=== PATIENT | male | born 1960 | race American Indian/Alaskan Native ===

== ENCOUNTER 2021-01-08 15:20 | Inpatient (IN) | payer MEDICAID ==
[2021-01-09 09:59] LABS: Alanine Aminotransferase 24 units/L (7-56); Albumin 4.1 g/dL (3.9-5); BUN/Creatinine Ratio 16; Blood Urea Nitrogen 21 mg/dL (9-20); Calcium 9.3 mg/dL (8.4-10.2); Hemolysis Index 13
[2021-01-09 10:27] LABS: Basophils # (Auto) 0.1 K/mm3 (0.0-0.1); Basophils % (Auto) 0.6 % (0.0-1.8); Eosinophils # (Auto) 0.3 K/mm3 (0.0-0.4); Eosinophils % (Auto) 2.1 % (0.0-4.3); Hematocrit 40.9 % (35.5-45.6); Hemoglobin 13.2 gm/dl (11.8-15.2); Lymphocytes # (Auto) 3.2 K/mm3 (1.2-5.4); Lymphocytes % (Auto) 25.8 % (13.4-35.0); Mean Corpuscular HGB Conc 32 % (32-34); Mean Corpuscular Volume 86 fl (84-94); Monocytes # (Auto) 1.1 K/mm3 (0.0-0.8); Platelet Count 283 K/mm3 (140-440); Red Blood Count 4.77 M/mm3 (3.65-5.03); Red Cell Distribution Width 14.3 % (13.2-15.2)
--- NOTE | 2021-01-09 11:35 | History and Physical Report ---
GP History & Physical - History of Present Illness Date of admission: 01/08/21 Date of Examination: 01/09/21 Reason for Admission: Danger to self, Failure of Outpatient Treatment, Severe anxiety/depression History of Present Illness: The patient is a 60y/o male patient whom I evaluated today. He endorses SI without a plan. He says "I didn't have nothing to do it with." He also verbalizes voices telling him to hurt himself. He says he is from [facility]. The patient says he used to do cocaine but has been clean for a few years. PAST PSYCHIATRIC HISTORY: Diagnoses: schizophrenia Suicide attempts or Self-harm behavior: Denies Prior psychiatric hospitalizations: Yes Substance Abuse history: Cocaine Previous psychiatric medications tried: Yes Outpatient treatment: Yes PAST MEDICAL HISTORY: None reported or document Family Psychiatric History: None reported or documented SOCIAL HISTORY Marital Status: Single Living Arrangements: [facility] Employment Status: Disabled Access to guns/weapons: Denies Education: History of Abuse: Denies Legal History: Denies REVIEW OF SYSTEMS Constitutional: Negative for weight loss ENT: Negative for stridor Respiratory: Negative for cough or hemoptysis All other systems reviewed and are negative MENTAL STATUS EXAMINATION General Appearance and Behavior: Age appropriate, good hygiene, wearing appropriate clothes. Cooperation: cooperative Psychomotor Behavior: Psychomotor normal Mood: Depressed Affect and affective range: Incongruent with stated mood Thought Process: Goal directed Thought Content: None Speech: Normal volume, Regular rate and rhythm, Suicidal Ideation: Yes Homicidal Ideation: Denies Hallucinations: Auditory Delusions: None elicited Impulse Control: Unimpaired Insight and Judgment: Poor Memory: limited Attention: Distractible Orientation: alert and oriented Assessment and Plan (1) Schizophrenia Current Visit: Yes Status: Acute Treatment Plan Patient admitted for inpatient psychiatric evaluation, medication adjustment and close monitoring The patient's behavior, mood, sleep and appetite will be closely monitored. Patient enrolled in individual and group therapeutic sessions and encouraged to attend. Patient provided with a safe and structured environment. Patient's physical health needs will be addressed by the Hospitalist. Hospitalist Consulted Labs including CBC, CMP, Lipid profile and Hemoglobin A1C levels ordered for baseline reference Social Assessment will be completed and the Matrix Worker will work with patient and family to ensure a suitable and safe disposition Medication adjustment will be made as clinically indicated Restarted home meds Usual Wellness Restorationist/Preservation: - Start Trazodone 50 mg po QHS & 50 mg po QHS PRN between 10 PM & 2 AM for insomnia - Start Melatonin 5 mg po QHS to promote circadian rhythm The patient agreed on the treatment plan, understood the risk, benefit, alternative treatment, potential consequence of no treatment, and gave informed consent. Estimated days: 7 Post hospital care: primary care provider, psychiatric provider Case staffed with Dr. Grewal Legal Status: Voluntary Reaction to Hospitalization: Accepting Medications and Allergies Allergies Allergy/AdvReac Type Severity Reaction Status Date / Time acetaminophen Allergy Severe Swelling Verified 01/08/21 23:30 aspirin Allergy Severe Swelling Verified 01/08/21 23:32 Home Medications Medication Instructions Recorded Confirmed Last Taken Type Apixaban [Eliquis] 5 mg PO BID 01/09/21 01/09/21 Unknown History Insulin Detemir [Levemir Flextouch] 22 unit SQ HS 01/09/21 01/09/21 Unknown History Lispro Insulin [HumaLOG] See Protocol SQ ACHS 01/09/21 01/09/21 Unknown History Magnesium Oxide [Mag-Ox] 400 mg PO TID 01/09/21 01/09/21 Unknown History Metoprolol [Lopressor TAB] 50 mg PO BID 01/09/21 01/09/21 Unknown History Pravastatin [Pravachol] 80 mg PO QHS 01/09/21 01/09/21 Unknown History Quetiapine Fumarate [SEROquel] 400 mg PO HS 01/09/21 01/09/21 Unknown History Tiotropium Br/Olodaterol HCl 2 puff IH DAILY 01/09/21 01/09/21 Unknown History [Stiolto Respimat Inhal [place]] levETIRAcetam [Keppra TAB] 1,000 mg PO BID 01/09/21 01/09/21 Unknown History lisinopriL [Lisinopril] 10 mg PO DAILY 01/09/21 01/09/21 Unknown History oxyCODONE [roxiCODONE] 5 mg PO TID 01/09/21 01/09/21 Unknown History Results - Results Labs/Vitals: Laboratory Last Values WBC 12.4 K/mm3 (4.5-11.0) H 01/09/21 09:14 RBC 4.77 M/mm3 (3.65-5.03) 01/09/21 09:14 Hgb 13.2 gm/dl (11.8-15.2) 01/09/21 09:14 Hct 40.9 % (35.5-45.6) 01/09/21 09:14 MCV 86 fl (84-94) 01/09/21 09:14 MCH 28 pg (28-32) 01/09/21 09:14 MCHC 32 % (32-34) 01/09/21 09:14 RDW 14.3 % (13.2-15.2) 01/09/21 09:14 Plt Count 283 K/mm3 (140-440) 01/09/21 09:14 Lymph % (Auto) 25.8 % (13.4-35.0) 01/09/21 09:14 [place] % (Auto) 9.0 % (0.0-7.3) H 01/09/21 09:14 Eos % (Auto) 2.1 % (0.0-4.3) 01/09/21 09:14 Baso % (Auto) 0.6 % (0.0-1.8) 01/09/21 09:14 Lymph # (Auto) 3.2 K/mm3 (1.2-5.4) 01/09/21 09:14 [place] # (Auto) 1.1 K/mm3 (0.0-0.8) H 01/09/21 09:14 Eos # (Auto) 0.3 K/mm3 (0.0-0.4) 01/09/21 09:14 Baso # (Auto) 0.1 K/mm3 (0.0-0.1) 01/09/21 09:14 Seg Neutrophils % 62.5 % (40.0-70.0) 01/09/21 09:14 Seg Neutrophils # 7.8 K/mm3 (1.8-7.7) H 01/09/21 09:14 Sodium 137 mmol/L (137-145) 01/09/21 09:14 Potassium 4.8 mmol/L (3.6-5.0) 01/09/21 09:14 Chloride 101.7 mmol/L (98-107) 01/09/21 09:14 Carbon Dioxide 21 mmol/L (22-30) L 01/09/21 09:14 Anion Gap 19 mmol/L 01/09/21 09:14 BUN 21 mg/dL (9-20) H 01/09/21 09:14 Creatinine 1.3 mg/dL (0.8-1.3) 01/09/21 09:14 Estimated GFR > 60 ml/min 01/09/21 09:14 BUN/Creatinine Ratio 16 % 01/09/21 09:14 Glucose 207 mg/dL (75-100) H 01/09/21 09:14 POC Glucose 215 mg/dL (70-105) H 01/09/21 10:55 Calcium 9.3 mg/dL (8.4-10.2) 01/09/21 09:14 Total Bilirubin 0.50 mg/dL (0.1-1.2) 01/09/21 09:14 AST 16 units/L (5-40) 01/09/21 09:14 ALT 24 units/L (7-56) 01/09/21 09:14 Alkaline Phosphatase 149 units/L (35-129) H 01/09/21 09:14 Total Protein 6.8 g/dL (6.3-8.2) 01/09/21 09:14 Albumin 4.1 g/dL (3.9-5) 01/09/21 09:14 Albumin/Globulin Ratio 1.5 % 01/09/21 09:14 TSH 1.840 mlU/mL (0.270-4.200) 01/09/21 09:14 Last Vital Signs Temp 99.0 F 01/09/21 07:43 Pulse 81 01/09/21 07:43 Resp 18 01/09/21 07:43 BP 125/71 01/09/21 07:43 Pulse Ox 80 L 01/09/21 07:43 Physical Examination - Constitutional Vitals: Vital Signs Temp Pulse Resp BP Pulse Ox 99.0 F 81 18 125/71 80 L 01/09/21 07:43 01/09/21 07:43 01/09/21 07:43 01/09/21 07:43 01/09/21 07:43 Temperature -Last 24 Hours Temperature 99.0 F Mental Status Exam - Vital signs Last Vital Signs Temp 99.0 F 01/09/21 07:43 Pulse 81 01/09/21 07:43 Resp 18 01/09/21 07:43 BP 125/71 01/09/21 07:43 Pulse Ox 80 L 01/09/21 07:43 Physician Certification - Certification Statement Physician Certification Statement: This is an acknowledgement statement that OSVALDO DE LA TORRE is a 60 year old M who requires inpatient psychiatric admission for treatment which could reasonably be expected to improve the patient's condition for Estimated period of time patient will need to remain in the hospital: [ ] Plan for post-hospital care: [ ]
[2021-01-09] MEDS ORDERED: NON-FORMULARY EACH (Apixaban 5 MG Tablet) PO SCH (11:45)
[2021-01-09] MEDS ORDERED: NON-FORMULARY EACH (Levetiracetam [Keppra Tab] 1,000 MG Tablet) PO SCH (11:45)
[2021-01-09] MEDS ORDERED: NON-FORMULARY EACH (Tiotropium Br/Olodaterol Hcl [Stiolto Respimat Inhal Spray] 4 GM Mist. NS SCH (11:45)
--- NOTE | 2021-01-09 12:11 | Consultation ---
History of Present Illness - Reason for Consult Consult date: 01/09/21 Hypertension Requesting physician: TAYO YUN - History of Present Illness Patient with schizophrenia admitted to Psych Floor. The hospitalist service has been consulted for management of multiple co-morbidities including hypertension, diabetes, COPD, seizure disorder. Currently he denies chest pain, denies shortness of breath. He has chronic respiratory failure from COPD and is on oxygen at 2 l/min. Past History Past Medical History: COPD, diabetes, hypertension Past Surgical History: Other (knee surgery) Social history: other (Quit smoking 2 months). denies: alcohol abuse Family history: no significant family history Medications and Allergies Allergies Allergy/AdvReac Type Severity Reaction Status Date / Time acetaminophen Allergy Severe Swelling Verified 01/08/21 23:30 aspirin Allergy Severe Swelling Verified 01/08/21 23:32 Home Medications Medication Instructions Recorded Confirmed Last Taken Type Apixaban [Eliquis] 5 mg PO BID 01/09/21 01/09/21 Unknown History Insulin Detemir [Levemir Flextouch] 22 unit SQ HS 01/09/21 01/09/21 Unknown History Lispro Insulin [HumaLOG] See Protocol SQ ACHS 01/09/21 01/09/21 Unknown History Magnesium Oxide [Mag-Ox] 400 mg PO TID 01/09/21 01/09/21 Unknown History Metoprolol [Lopressor TAB] 50 mg PO BID 01/09/21 01/09/21 Unknown History Pravastatin [Pravachol] 80 mg PO QHS 01/09/21 01/09/21 Unknown History Tiotropium Br/Olodaterol HCl 2 puff IH DAILY 01/09/21 01/09/21 Unknown History [Stiolto Respimat Inhal [place]] levETIRAcetam [Keppra TAB] 1,000 mg PO BID 01/09/21 01/09/21 Unknown History lisinopriL [Lisinopril] 10 mg PO DAILY 01/09/21 01/09/21 Unknown History oxyCODONE [roxiCODONE] 5 mg PO TID 01/09/21 01/09/21 Unknown History QUEtiapine [SEROquel] 25 mg PO DAILY #30 tablet 01/13/21 Unknown Rx Quetiapine Fumarate [SEROquel] 400 mg PO HS #30 01/13/21 Unknown Rx Sertraline [Zoloft] 25 mg PO QDAY #30 tablet 01/13/21 Unknown Rx Active Meds: Active Medications Apixaban (Apixaban 5 Mg Tab) 5 mg PO Q12HR JAN Insulin Glargine (Insulin Glargine 100 Units/Ml) 22 units SUB-Q QHS JAN Insulin Human Lispro (Insulin Lispro 100 Unit/Ml) 0 unit SUB-Q ACHS JAN Levetiracetam (Levetiracetam 500 Mg Tab) 1,000 mg PO BID JAN Lisinopril (Lisinopril 10 Mg Tab) 10 mg PO DAILY JAN Magnesium Oxide (Magnesium Oxide 400 Mg Tab) 400 mg PO TID JAN Metoprolol Tartrate (Metoprolol Tartrate 50 Mg Tab) 50 mg PO BID JAN Miscellaneous Medication (Tiotropium Br/Olodaterol Hcl [Stiolto Respimat Inhal [place]]) 2 puff IH DAILY JAN Oxycodone HCl (Oxycodone 5 Mg Tab) 5 mg PO TID JAN Pravastatin Sodium (Pravastatin 80 Mg Tab) 80 mg PO QHS JAN Quetiapine Fumarate (Quetiapine 200 Mg Tab) 400 mg PO HS JAN Review of Systems All systems: negative (No fever, no cough , no abd pain. All other systems reviewed and are negative.) Exam - Physical Exam Narrative exam: Gen: Not in acute distress, obese, sitting up in chair HEENT:Normocephalic,atraumatic Neck:supple, No JVD Lungs: Clear to auscultation, no wheeze Heart:S1 and S2 reg, no murmurs, rubs or gallop Abd:soft, non tender, non distended, normal bowel sounds Ext; No edema, no clubbing, no cyanosis Neuro:Awake,alert, moves all extremities, no focal neurological , - Constitutional Vitals: Temp Pulse Resp BP Pulse Ox 99.0 F 81 18 125/71 80 L 01/09/21 07:43 01/09/21 07:43 01/09/21 07:43 01/09/21 07:43 01/09/21 07:43 Results - Labs CBC & Chem 7: 01/09/21 09:14 01/09/21 09:14 Labs: Abnormal lab results 01/09/21 01/09/21 01/09/21 Range/Units 06:10 09:14 09:14 WBC 12.4 H (4.5-11.0) K/mm3 [place] % (Auto) 9.0 H (0.0-7.3) % [place] # (Auto) 1.1 H (0.0-0.8) K/mm3 Seg Neutrophils # 7.8 H (1.8-7.7) K/mm3 Carbon Dioxide 21 L (22-30) mmol/L BUN 21 H (9-20) mg/dL Glucose 207 H (75-100) mg/dL POC Glucose 280 H (70-105) mg/dL Alkaline Phosphatase 149 H (35-129) units/L 01/09/21 Range/Units 10:55 WBC (4.5-11.0) K/mm3 [place] % (Auto) (0.0-7.3) % [place] # (Auto) (0.0-0.8) K/mm3 Seg Neutrophils # (1.8-7.7) K/mm3 Carbon Dioxide (22-30) mmol/L BUN (9-20) mg/dL Glucose (75-100) mg/dL POC Glucose 215 H (70-105) mg/dL Alkaline Phosphatase (35-129) units/L Assessment and Plan Schizophrenia Admitted to Psych floor Hypertension Cont meds Diabetes mellitus type 2 accucheck qac hs Seizure disorder Implement seizure precaution COPD Chronic resp failure Cont Oxygen at 2 l/min Thanks Dr. Yun for consulting us. Will follow.
[2021-01-09 12:37] LABS: Hepatitis C Virus Antibody Non-Reactive (NonReactive)
[2021-01-09 12:51] LABS: Hepatitis B Surface Antigen Nonreactive (Negative)
[2021-01-09] MEDS: LISINOPRIL 10 MG TAB PO SCH (13:42)
[2021-01-09] MEDS: oxyCODONE 5 MG TAB PO SCH ×2 (13:42→20:20)
[2021-01-09] MEDS: MAGNESIUM OXIDE 400 MG TAB PO SCH ×2 (13:42→20:20)
[2021-01-09] MEDS: METOPROLOL TARTRATE 50 MG TAB PO SCH ×2 (13:42→21:16)
[2021-01-09] MEDS: INSULIN LISPRO 100 UNIT/ML SUB-Q SCH ×2 (16:52→22:53)
[2021-01-09] MEDS: APIXABAN 5 MG TAB PO SCH (21:14)
[2021-01-09] MEDS: levETIRAcetam 500 MG TAB PO SCH (21:15)
[2021-01-09] MEDS: QUEtiapine 200 MG TAB PO SCH (21:17)
[2021-01-09] MEDS: PRAVASTATIN 80 MG TAB PO SCH (21:17)
[2021-01-09] MEDS ORDERED: NON-FORMULARY EACH (Insulin Detemir [Levemir Flextouch] 100 UNIT/ML Insuln.Pen) SQ SCH (22:00)
[2021-01-09] MEDS ORDERED: NON-FORMULARY EACH (Quetiapine Fumarate [Seroquel] 400 MG Tablet) PO SCH (22:00)
[2021-01-09] MEDS: INSULIN GLARGINE 100 UNITS/ML SUB-Q SCH (22:52)
[2021-01-10] MEDS: levETIRAcetam 500 MG TAB PO SCH ×2 (09:02→21:31)
[2021-01-10] MEDS: MAGNESIUM OXIDE 400 MG TAB PO SCH ×3 (09:02→21:31)
[2021-01-10] MEDS: APIXABAN 5 MG TAB PO SCH ×2 (09:02→21:31)
[2021-01-10] MEDS: oxyCODONE 5 MG TAB PO SCH ×3 (09:03→21:31)
[2021-01-10] MEDS: INSULIN LISPRO 100 UNIT/ML SUB-Q SCH ×4 (09:09→22:14)
--- NOTE | 2021-01-10 10:43 | Progress Note ---
Subjective Date of service: 01/10/21 Principal diagnosis: Schizophrenia Subjective Comment: The patient was seen today. He endorses suicidal thoughts with no plan. He says "I'm getting better though." He verbalizes hearing voices that he "can't make out." REVIEW OF SYSTEMS Constitutional: Negative for weight loss ENT: Negative for stridor Respiratory: Negative for cough or hemoptysis All other systems reviewed and are negative MENTAL STATUS EXAMINATION General Appearance and Behavior: Age appropriate, good hygiene, wearing appropriate clothes. Cooperation: cooperative Psychomotor Behavior: Psychomotor normal Mood: Depressed Affect and affective range: Incongruent with stated mood Thought Process: Goal directed Thought Content: None Speech: Normal volume, Regular rate and rhythm, Suicidal Ideation: Yes Homicidal Ideation: Denies Hallucinations: Auditory Delusions: None elicited Impulse Control: Unimpaired Insight and Judgment: Poor Memory: limited Attention: Distractible Orientation: alert and oriented Assessment and Plan (1) Schizophrenia Current Visit: Yes Status: Acute Treatment Plan Patient admitted for inpatient psychiatric evaluation, medication adjustment and close monitoring The patient's behavior, mood, sleep and appetite will be closely monitored. Patient enrolled in individual and group therapeutic sessions and encouraged to attend. Patient provided with a safe and structured environment. Patient's physical health needs will be addressed by the Hospitalist. Hospitalist Consulted Labs including CBC, CMP, Lipid profile and Hemoglobin A1C levels ordered for baseline reference Social Assessment will be completed and the Nail Expert will work with patient and family to ensure a suitable and safe disposition Medication adjustment will be made as clinically indicated Start Seroquel 25mg po daily in addition to nightly dose Start Zoloft 25mg po daily Usual Wellness Jain/Preservation: - Start Trazodone 50 mg po QHS & 50 mg po QHS PRN between 10 PM & 2 AM for insomnia - Start Melatonin 5 mg po QHS to promote circadian rhythm The patient agreed on the treatment plan, understood the risk, benefit, alternative treatment, potential consequence of no treatment, and gave informed consent. Estimated days: 5 Post hospital care: primary care provider, psychiatric provider Case staffed with Dr. Grewal Medications and Allergies Allergies Allergy/AdvReac Type Severity Reaction Status Date / Time acetaminophen Allergy Severe Swelling Verified 01/08/21 23:30 aspirin Allergy Severe Swelling Verified 01/08/21 23:32 Home Medications Medication Instructions Recorded Confirmed Last Taken Type Apixaban [Eliquis] 5 mg PO BID 01/09/21 01/09/21 Unknown History Insulin Detemir [Levemir Flextouch] 22 unit SQ HS 01/09/21 01/09/21 Unknown H istory Lispro Insulin [HumaLOG] See Protocol SQ [facility] 01/09/21 01/09/21 Unknown History Magnesium Oxide [Mag-Ox] 400 mg PO TID 01/09/21 01/09/21 Unknown History Metoprolol [Lopressor TAB] 50 mg PO BID 01/09/21 01/09/21 Unknown History Pravastatin [Pravachol] 80 mg PO QHS 01/09/21 01/09/21 Unknown History Quetiapine Fumarate [SEROquel] 400 mg PO HS 01/09/21 01/09/21 Unknown History Tiotropium Br/Olodaterol HCl 2 puff IH DAILY 01/09/21 01/09/21 Unknown History [Stiolto Respimat Inhal [place]] levETIRAcetam [Keppra TAB] 1,000 mg PO BID 01/09/21 01/09/21 Unknown History lisinopriL [Lisinopril] 10 mg PO DAILY 01/09/21 01/09/21 Unknown History oxyCODONE [roxiCODONE] 5 mg PO TID 01/09/21 01/09/21 Unknown History Active Meds: Active Medications Apixaban (Apixaban 5 Mg Tab) 5 mg PO Q12HR [facility] Last Admin: 01/10/21 09:02 Dose: 5 mg Documented by: Insulin Glargine (Insulin [facility] 100 Units/Ml) [facility] Admin: 01/09/21 22:52 Dose: 22 units Documented by: Insulin Human Lispro (Insulin Lispro 100 Unit/Ml) 0 unit SUB-Q [facility]; Protocol Last Admin: 01/10/21 09:09 Dose: Not Given Documented by: Levetiracetam (Levetiracetam 500 Mg Tab) 1,000 mg PO BID [facility] Last Admin: 01/10/21 09:02 Dose: 1,000 mg Documented by: Lisinopril (Lisinopril 10 Mg Tab) 10 mg PO DAILY [facility] Last Admin: 01/09/21 13:42 Dose: 10 mg Documented by: Magnesium Oxide (Magnesium Oxide 400 Mg Tab) 400 mg PO TID [facility] Last Admin: 10/23/21 09:02 Dose: 400 mg Documented by: Metoprolol Tartrate (Metoprolol Tartrate 50 Mg Tab) 50 mg PO BID [facility] Last Admin: 01/09/21 21:16 Dose: 50 mg Documented by: Miscellaneous Medication (Tiotropium Br/Olodaterol Hcl [Stiolto Respimat Inhal [place]]) 2 puff NS DAILY [facility] Oxycodone HCl (Oxycodone 5 Mg Tab) 5 mg PO TID [facility] Last Admin: 01/10/21 09:03 Dose: 5 mg Documented by: Pravastatin Sodium (Pravastatin 80 Mg Tab) 80 mg PO QHS [facility] Last Admin: 01/09/21 21:17 Dose: 80 mg Documented by: Quetiapine Fumarate (Quetiapine 200 Mg Tab) 400 mg PO HS [facility] Last Admin: 01/09/21 21:17 Dose: 400 mg Documented by: Results - Results Labs/Vitals: Laboratory Last Values WBC 12.4 K/mm3 (4.5-11.0) H 01/09/21 09:14 RBC 4.77 M/mm3 (3.65-5.03) 01/09/21 09:14 Hgb 13.2 gm/dl (11.8-15.2) 01/09/21 09:14 Hct 40.9 % (35.5-45.6) 01/09/21 09:14 MCV 86 fl (84-94) 01/09/21 09:14 MCH 28 pg (28-32) 01/09/21 09:14 MCHC 32 % (32-34) 01/09/21 09:14 RDW 14.3 % (13.2-15.2) 01/09/21 09:14 Plt Count 283 K/mm3 (140-440) 01/09/21 09:14 Lymph % (Auto) 25.8 % (13.4-35.0) 01/09/21 09:14 [place] % (Auto) 9.0 % (0.0-7.3) H 01/09/21 09:14 Eos % (Auto) 2.1 % (0.0-4.3) 01/09/21 09:14 Baso % (Auto) 0.6 % (0.0-1.8) 01/09/21 09:14 Lymph # (Auto) 3.2 K/mm3 (1.2-5.4) 01/09/21 09:14 [place] # (Auto) 1.1 K/mm3 (0.0-0.8) H 01/09/21 09:14 Eos # (Auto) 0.3 K/mm3 (0.0-0.4) 01/09/21 09:14 Baso # (Auto) 0.1 K/mm3 (0.0-0.1) 01/09/21 09:14 Seg Neutrophils % 62.5 % (40.0-70.0) 01/09/21 09:14 Seg Neutrophils # 7.8 K/mm3 (1.8-7.7) H 01/09/21 09:14 Sodium 137 mmol/L (137-145) 01/09/21 09:14 Potassium 4.8 mmol/L (3.6-5.0) 01/09/21 09:14 Chloride 101.7 mmol/L (98-107) 01/09/21 09:14 Carbon Dioxide 21 mmol/L (22-30) L 01/09/21 09:14 Anion Gap 19 mmol/L 01/09/21 09:14 BUN 21 mg/dL (9-20) H 01/09/21 09:14 Creatinine 1.3 mg/dL (0.8-1.3) 01/09/21 09:14 Estimated GFR > 60 ml/min 01/09/21 09:14 BUN/Creatinine Ratio 16 % 01/09/21 09:14 Glucose 207 mg/dL (75-100) H 01/09/21 09:14 POC Glucose 186 mg/dL (70-105) H 01/10/21 08:28 Calcium 9.3 mg/dL (8.4-10.2) 01/09/21 09:14 Total Bilirubin 0.50 mg/dL (0.1-1.2) 01/09/21 09:14 AST 16 units/L (5-40) 01/09/21 09:14 ALT 24 units/L (7-56) 01/09/21 09:14 Alkaline Phosphatase 149 units/L (35-129) H 01/09/21 09:14 Total Protein 6.8 g/dL (6.3-8.2) 01/09/21 09:14 Albumin 4.1 g/dL (3.9-5) 01/09/21 09:14 Albumin/Globulin Ratio 1.5 % 01/09/21 09:14 TSH 1.840 mlU/mL (0.270-4.200) 01/09/21 09:14 Hepatitis A IgM Ab Non-reactive (NonReactive) 01/09/21 09:14 Hep Bs Antigen Nonreactive (Negative) 01/09/21 09:14 Hep B Core IgM Ab Non-reactive (NonReactive) 01/09/21 09:14 Hepatitis C Antibody Non-reactive (NonReactive) 01/09/21 09:14 Last Vital Signs Temp 98.7 F 01/09/21 20:22 Pulse 83 01/09/21 21:16 Resp 18 01/09/21 20:22 BP 114/72 01/09/21 21:16 Pulse Ox 98 01/09/21 20:22
[2021-01-10] MEDS: QUEtiapine 25 MG TAB PO SCH (15:46)
[2021-01-10] MEDS: SERTRALINE 25 MG TAB PO SCH (15:46)
[2021-01-10] MEDS: LISINOPRIL 10 MG TAB PO SCH (15:57)
[2021-01-10] MEDS: METOPROLOL TARTRATE 50 MG TAB PO SCH ×2 (15:58→21:32)
[2021-01-10] MEDS: QUEtiapine 200 MG TAB PO SCH (21:31)
[2021-01-10] MEDS: PRAVASTATIN 80 MG TAB PO SCH (21:32)
[2021-01-10] MEDS: INSULIN GLARGINE 100 UNITS/ML SUB-Q SCH (22:13)
[2021-01-11] MEDS: INSULIN LISPRO 100 UNIT/ML SUB-Q SCH ×4 (07:30→21:27)
--- NOTE | 2021-01-11 10:00 | Progress Note ---
Subjective Date of service: 01/11/21 Principal diagnosis: Schizophrenia Subjective Comment: The patient was seen today. He says he's feeling better. The patient says he's not longer suicidal. He denies any hallucinations. REVIEW OF SYSTEMS Constitutional: Negative for weight loss ENT: Negative for stridor Respiratory: Negative for cough or hemoptysis All other systems reviewed and are negative MENTAL STATUS EXAMINATION General Appearance and Behavior: Age appropriate, good hygiene, wearing appropriate clothes. Cooperation: cooperative Psychomotor Behavior: Psychomotor normal Mood: Depressed Affect and affective range: Incongruent with stated mood Thought Process: Goal directed Thought Content: None Speech: Normal volume, Regular rate and rhythm, Suicidal Ideation: Yes Homicidal Ideation: Denies Hallucinations: Auditory Delusions: None elicited Impulse Control: Unimpaired Insight and Judgment: Poor Memory: limited Attention: Distractible Orientation: alert and oriented Assessment and Plan (1) Schizophrenia Current Visit: Yes Status: Acute Treatment Plan Patient admitted for inpatient psychiatric evaluation, medication adjustment and close monitoring The patient's behavior, mood, sleep and appetite will be closely monitored. Patient enrolled in individual and group therapeutic sessions and encouraged to attend. Patient provided with a safe and structured environment. Patient's physical health needs will be addressed by the Hospitalist. Hospitalist Consulted Labs including CBC, CMP, Lipid profile and Hemoglobin A1C levels ordered for baseline reference Social Assessment will be completed and the Assembly Machine Tender will work with patient and family to ensure a suitable and safe disposition Medication adjustment will be made as clinically indicated Start Seroquel 25mg po daily in addition to nightly dose yesterday Start Zoloft 25mg po daily yesterday No changes made today Usual Wellness Jehovah'S Witness/Preservation: - Start Trazodone 50 mg po QHS & 50 mg po QHS PRN between 10 PM & 2 AM for insomnia - Start Melatonin 5 mg po QHS to promote circadian rhythm The patient agreed on the treatment plan, understood the risk, benefit, alternative treatment, potential consequence of no treatment, and gave informed consent. Estimated days: 5 Post hospital care: primary care provider, psychiatric provider Case staffed with Dr. Grewal Medications and Allergies Allergies Allergy/AdvReac Type Severity Reaction Status Date / Time acetaminophen Allergy Severe Swelling Verified 01/08/21 23:30 aspirin Allergy Severe Swelling Verified 01/08/21 23:32 Home Medications Medication Instructions Recorded Confirmed Last Taken Type Apixaban [Eliquis] 5 mg PO BID 01/09/21 01/09/21 Unknown History Insulin Detemir [Levemir Flextouch] 22 unit SQ HS 01/09/21 01/09/21 Unknown History Lispro Insulin [HumaLOG] See Protocol SQ [facility] 01/09/21 01/09/21 Unknown History Magnesium Oxide [Mag-Ox] 400 mg PO TID 01/09/21 01/09/21 Unknown History Metoprolol [Lopressor TAB] 50 mg PO BID 01/09/21 01/09/21 Unknown History Pravastatin [Pravachol] 80 mg PO QHS 01/09/21 01/09/21 Unknown History Quetiapine Fumarate [SEROquel] 400 mg PO HS 01/09/21 01/09/21 Unknown History Tiotropium Br/Olodaterol HCl 2 puff IH DAILY 01/09/21 01/09/21 Unknown History [Stiolto Respimat Inhal [place]] levETIRAcetam [Keppra TAB] 1,000 mg PO BID 01/09/21 01/09/21 Unknown History lisinopriL [Lisinopril] 10 mg PO DAILY 01/09/21 01/09/21 Unknown History oxyCODONE [roxiCODONE] 5 mg PO TID 01/09/21 01/09/21 Unknown History Active Meds: Active Medications Apixaban (Apixaban 5 Mg Tab) 5 mg PO Q12HR [facility] Last Admin: 01/10/21 21:31 Dose: 5 mg Documented by: Insulin Glargine (Insulin Glargine 100 Units/Ml) [facility] Admin: 01/10/21 22:13 Dose: 22 units Documented by: Insulin Human Lispro (Insulin Lispro 100 Unit/Ml) 0 unit SUB-Q [facility]; Protocol Last Admin: 01/10/21 22:14 Dose: Not Given Documented by: Levetiracetam (Levetiracetam 500 Mg Tab) 1,000 mg PO BID [facility] Last Admin: 01/10/21 21:31 Dose: 1,000 mg Documented by: Lisinopril (Lisinopril 10 Mg Tab) 10 mg PO DAILY [facility] Last Admin: 01/10/21 15:57 Dose: 10 mg Documented by: Magnesium Oxide (Magnesium Oxide 400 Mg Tab) 400 mg PO TID [facility] Last Admin: 01/10/21 21:31 Dose: 400 mg Documented by: Metoprolol Tartrate (Metoprolol Tartrate 50 Mg Tab) 50 mg PO BID [facility] Last Admin: 01/10/21 21:32 Dose: 50 mg Documented by: Miscellaneous Medication (Tiotropium Br/Olodaterol Hcl [Stiolto Respimat Inhal [place]]) 2 puff NS DAILY [facility] Oxycodone HCl (Oxycodone 5 Mg Tab) 5 mg PO TID [facility] Last Admin: 01/10/21 21:31 Dose: 5 mg Documented by: Pravastatin Sodium (Pravastatin 80 Mg Tab) 80 mg PO QHS [facility] Last Admin: 01/10/21 21:32 Dose: 80 mg Documented by: Quetiapine Fumarate (Quetiapine 200 Mg Tab) 400 mg PO HS [facility] Last Admin: 01/10/21 21:31 Dose: 400 mg Documented by: Quetiapine Fumarate (Quetiapine 25 Mg Tab) 25 mg PO DAILY [facility] Last Admin: 01/10/21 15:46 Dose: 25 mg Documented by: Sertraline HCl (Sertraline 25 Mg Tab) 25 mg PO QDAY [facility] Last Admin: 01/10/21 15:46 Dose: 25 mg Documented by: Results - Results Labs/Vitals: Laboratory Last Values WBC 12.4 K/mm3 (4.5-11.0) H 01/09/21 09:14 RBC 4.77 M/mm3 (3.65-5.03) 01/09/21 09:14 Hgb 13.2 gm/dl (11.8-15.2) 01/09/21 09:14 Hct 40.9 % (35.5-45.6) 01/09/21 09:14 MCV 86 fl (84-94) 01/09/21 09:14 MCH 28 pg (28-32) 01/09/21 09:14 MCHC 32 % (32-34) 01/09/21 09:14 RDW 14.3 % (13.2-15.2) 01/09/21 09:14 Plt Count 283 K/mm3 (140-440) 01/09/21 09:14 Lymph % (Auto) 25.8 % (13.4-35.0) 01/09/21 09:14 [place] % (Auto) 9.0 % (0.0-7.3) H 01/09/21 09:14 Eos % (Auto) 2.1 % (0.0-4.3) 01/09/21 09:14 Baso % (Auto) 0.6 % (0.0-1.8) 01/09/21 09:14 Lymph # (Auto) 3.2 K/mm3 (1.2-5.4) 01/09/21 09:14 [place] # (Auto) 1.1 K/mm3 (0.0-0.8) H 01/09/21 09:14 Eos # (Auto) 0.3 K/mm3 (0.0-0.4) 01/09/21 09:14 Baso # (Auto) 0.1 K/mm3 (0.0-0.1) 01/09/21 09:14 Seg Neutrophils % 62.5 % (40.0-70.0) 01/09/21 09:14 Seg Neutrophils # 7.8 K/mm3 (1.8-7.7) H 01/09/21 09:14 Sodium 137 mmol/L (137-145) 01/09/21 09:14 Potassium 4.8 mmol/L (3.6-5.0) 01/09/21 09:14 Chloride 101.7 mmol/L (98-107) 01/09/21 09:14 Carbon Dioxide 21 mmol/L (22-30) L 01/09/21 09:14 Anion Gap 19 mmol/L 01/09/21 09:14 BUN 21 mg/dL (9-20) H 01/09/21 09:14 Creatinine 1.3 mg/dL (0.8-1.3) 01/09/21 09:14 Estimated GFR > 60 ml/min 01/09/21 09:14 BUN/Creatinine Ratio 16 % 01/09/21 09:14 Glucose 207 mg/dL (75-100) H 01/09/21 09:14 POC Glucose 136 mg/dL (70-105) H 01/11/21 06:07 Calcium 9.3 mg/dL (8.4-10.2) 01/09/21 09:14 Total Bilirubin 0.50 mg/dL (0.1-1.2) 01/09/21 09:14 AST 16 units/L (5-40) 01/09/21 09:14 ALT 24 units/L (7-56) 01/09/21 09:14 Alkaline Phosphatase 149 units/L (35-129) H 01/09/21 09:14 Total Protein 6.8 g/dL (6.3-8.2) 01/09/21 09:14 Albumin 4.1 g/dL (3.9-5) 01/09/21 09:14 Albumin/Globulin Ratio 1.5 % 01/09/21 09:14 TSH 1.840 mlU/mL (0.270-4.200) 01/09/21 09:14 Hepatitis A IgM Ab Non-reactive (NonReactive) 01/09/21 09:14 Hep Bs Antigen Nonreactive (Negative) 01/09/21 09:14 Hep B Core IgM Ab Non-reactive (NonReactive) 01/09/21 09:14 Hepatitis C Antibody Non-reactive (NonReactive) 01/09/21 09:14 Last Vital Signs Temp 98.3 F 01/10/21 20:14 Pulse 71 01/10/21 21:32 Resp 18 01/10/21 21:31 BP 126/80 01/10/21 21:32 Pulse Ox 97 01/10/21 20:14
[2021-01-11] MEDS: levETIRAcetam 500 MG TAB PO SCH ×2 (10:54→21:28)
[2021-01-11] MEDS: APIXABAN 5 MG TAB PO SCH ×2 (10:54→21:28)
[2021-01-11] MEDS: oxyCODONE 5 MG TAB PO SCH ×3 (10:54→20:15)
[2021-01-11] MEDS: MAGNESIUM OXIDE 400 MG TAB PO SCH ×3 (10:54→20:10)
[2021-01-11] MEDS: QUEtiapine 25 MG TAB PO SCH (10:54)
[2021-01-11] MEDS: SERTRALINE 25 MG TAB PO SCH (10:54)
[2021-01-11] MEDS: METOPROLOL TARTRATE 50 MG TAB PO SCH ×2 (11:00→21:27)
[2021-01-11] MEDS: LISINOPRIL 10 MG TAB PO SCH (11:00)
--- NOTE | 2021-01-11 18:24 | Progress Note ---
Assessment and Plan - Patient Problems (1) COPD (chronic obstructive pulmonary disease) Current Visit: Yes Status: Acute Plan to address problem: Supplemental oxygen, pulse oximetry, continue current therapy. Outpatient pulmonary follow-up. (2) Nicotine dependence Current Visit: Yes Status: Acute Qualifiers: Nicotine product type: cigarettes Substance use status: in withdrawal Qualified Code(s): F17.213 - Nicotine dependence, cigarettes, with withdrawal Plan to address problem: Smoking cessation counseling, behavior change counseling, +15 minutes. (3) Hypertension Current Visit: Yes Status: Acute Qualifiers: Hypertension type: primary hypertension Qualified Code(s): I10 - Essential (primary) hypertension Plan to address problem: Monitor blood pressure every shift, continue medical management. (4) Obesity Current Visit: Yes Status: Acute Plan to address problem: Balanced diet, increase physical activity at discharge, outpatient pulmonary follow-up for sleep study (5) Seizure disorder Current Visit: Yes Status: Acute Plan to address problem: Seizure precautions, neurochecks, continue current therapy. (6) Diabetes Current Visit: Yes Status: Acute Plan to address problem: Consistent carbohydrate diet, hypoglycemia protocol, insulin protocol, History Interval history: 60 YO Male with DM, COPD, Nicotine Dependence, HTN, Seizure Disorder admitted to [facility] for psychiatric stabilization. Patient seen and evaluated in the recreation room. No reported nursing events. Patient denies pain. Hospitalist Physical - Constitutional Vitals: Temp Pulse Resp BP Pulse Ox 98.0 F 80 18 135/83 98 01/11/21 11:06 01/11/21 11:06 01/11/21 11:06 01/11/21 11:06 01/11/21 11:06 General appearance: Present: no acute distress - EENT Eyes: Present: PERRL ENT: hearing intact - Neck Neck: Present: supple - Respiratory Respiratory effort: normal Respiratory: bilateral: diminished - Cardiovascular Rhythm: regular Heart Sounds: Present: S1 & S2 - Extremities Extremities: no ischemia Peripheral Pulses: within normal limits - Abdominal General gastrointestinal: soft, non-tender, non-distended - Integumentary Integumentary: Present: clear, dry - Psychiatric Psychiatric: cooperative - Neurologic Neurologic: CNII-XII intact Results - Labs CBC & Chem 7: 01/09/21 09:14 01/09/21 09:14 Labs: Laboratory Last Values WBC 12.4 K/mm3 (4.5-11.0) H 01/09/21 09:14 RBC 4.77 M/mm3 (3.65-5.03) 01/09/21 09:14 Hgb 13.2 gm/dl (11.8-15.2) 01/09/21 09:14 Hct 40.9 % (35.5-45.6) 01/09/21 09:14 MCV 86 fl (84-94) 01/09/21 09:14 MCH 28 pg (28-32) 01/09/21 09:14 MCHC 32 % (32-34) 01/09/21 09:14 RDW 14.3 % (13.2-15.2) 01/09/21 09:14 Plt Count 283 K/mm3 (140-440) 01/09/21 09:14 Lymph % (Auto) 25.8 % (13.4-35.0) 01/09/21 09:14 [place] % (Auto) 9.0 % (0.0-7.3) H 01/09/21 09:14 Eos % (Auto) 2.1 % (0.0-4.3) 01/09/21 09:14 Baso % (Auto) 0.6 % (0.0-1.8) 01/09/21 09:14 Lymph # (Auto) 3.2 K/mm3 (1.2-5.4) 01/09/21 09:14 [place] # (Auto) 1.1 K/mm3 (0.0-0.8) H 01/09/21 09:14 Eos # (Auto) 0.3 K/mm3 (0.0-0.4) 01/09/21 09:14 Baso # (Auto) 0.1 K/mm3 (0.0-0.1) 01/09/21 09:14 Seg Neutrophils % 62.5 % (40.0-70.0) 01/09/21 09:14 Seg Neutrophils # 7.8 K/mm3 (1.8-7.7) H 01/09/21 09:14 Sodium 137 mmol/L (137-145) 01/09/21 09:14 Potassium 4.8 mmol/L (3.6-5.0) 01/09/21 09:14 Chloride 101.7 mmol/L (98-107) 01/09/21 09:14 Carbon Dioxide 21 mmol/L (22-30) L 01/09/21 09:14 Anion Gap 19 mmol/L 01/09/21 09:14 BUN 21 mg/dL (9-20) H 01/09/21 09:14 Creatinine 1.3 mg/dL (0.8-1.3) 01/09/21 09:14 Estimated GFR > 60 ml/min 01/09/21 09:14 BUN/Creatinine Ratio 16 % 01/09/21 09:14 Glucose 207 mg/dL (75-100) H 01/09/21 09:14 POC Glucose 183 mg/dL (70-105) H 01/11/21 16:33 Calcium 9.3 mg/dL (8.4-10.2) 01/09/21 09:14 Magnesium 2.10 mg/dL (1.7-2.3) 01/11/21 09:26 Total Bilirubin 0.50 mg/dL (0.1-1.2) 01/09/21 09:14 AST 16 units/L (5-40) 01/09/21 09:14 ALT 24 units/L (7-56) 01/09/21 09:14 Alkaline Phosphatase 149 units/L (35-129) H 01/09/21 09:14 Total Protein 6.8 g/dL (6.3-8.2) 01/09/21 09:14 Albumin 4.1 g/dL (3.9-5) 01/09/21 09:14 Albumin/Globulin Ratio 1.5 % 01/09/21 09:14 TSH 1.840 mlU/mL (0.270-4.200) 01/09/21 09:14 Hepatitis A IgM Ab Non-reactive (NonReactive) 01/09/21 09:14 Hep Bs Antigen Nonreactive (Negative) 01/09/21 09:14 Hep B Core IgM Ab Non-reactive (NonReactive) 01/09/21 09:14 Hepatitis C Antibody Non-reactive (NonReactive) 01/09/21 09:14 Nunes/IV: Voiding Method Toilet Active Medications - Current Medications Current Medications: Generic Name Dose Route Start Last Admin Trade Name Freq PRN Reason Stop Dose Admin Apixaban 5 mg 01/09/21 22:00 01/11/21 10:54 Apixaban 5 Mg Tab PO 5 mg Q12HR JAN Administration Insulin Glargine 22 units 01/09/21 22:00 01/10/21 22:13 Insulin Glargine 100 Units/Ml SUB-Q 22 units QHS JAN Administration Insulin Human Lispro 0 unit 01/09/21 16:30 01/11/21 16:55 Insulin Lispro 100 Unit/Ml SUB-Q Not Given ACHS [facility] Protocol Levetiracetam 1,000 mg 01/09/21 22:00 01/11/21 10:54 Levetiracetam 500 Mg Tab PO 1,000 mg BID JAN Administration Lisinopril 10 mg 01/09/21 14:00 01/11/21 11:00 Lisinopril 10 Mg Tab PO 10 mg DAILY JAN Administration Magnesium Oxide 400 mg 01/09/21 14:00 01/11/21 18:22 Magnesium Oxide 400 Mg Tab PO Not Given TID [facility] Metoprolol Tartrate 50 mg 01/09/21 12:00 01/11/21 11:00 Metoprolol Tartrate 50 Mg Tab PO 50 mg BID JAN Administration Miscellaneous Medication 2 puff 01/09/21 11:45 Tiotropium Br/Olodaterol Hcl [Stiolto Respimat Inhal [place]] NS DAILY [facility] Oxycodone HCl 5 mg 01/09/21 14:00 01/11/21 15:50 Oxycodone 5 Mg Tab PO 5 mg TID JAN Administration Pravastatin Sodium 80 mg 01/09/21 22:00 01/10/21 21:32 Pravastatin 80 Mg Tab PO 80 mg QHS [facility] Administration Quetiapine Fumarate 400 mg 01/09/21 22:00 01/10/21 21:31 Quetiapine 200 Mg Tab PO 400 mg HS JAN Administration Quetiapine Fumarate 25 mg 01/10/21 11:00 01/11/21 10:54 Quetiapine 25 Mg Tab PO 25 mg DAILY JAN Administration Sertraline HCl 25 mg 01/10/21 11:00 01/11/21 10:54 Sertraline 25 Mg Tab PO 25 mg QDAY JAN Administration
--- NOTE | 2021-01-11 18:29 | Progress Note ---
Assessment and Plan - Patient Problems (1) COPD (chronic obstructive pulmonary disease) Current Visit: Yes Status: Acute Plan to address problem: Supplemental oxygen, pulse oximetry, continue current therapy. Outpatient pulmonary follow-up. (2) Nicotine dependence Current Visit: Yes Status: Acute Qualifiers: Nicotine product type: cigarettes Substance use status: in withdrawal Qualified Code(s): F17.213 - Nicotine dependence, cigarettes, with withdrawal Plan to address problem: Smoking cessation counseling, behavior change counseling, +15 minutes. (3) Hypertension Current Visit: Yes Status: Acute Qualifiers: Hypertension type: primary hypertension Qualified Code(s): I10 - Essential (primary) hypertension Plan to address problem: Monitor blood pressure every shift, continue medical management. (4) Obesity Current Visit: Yes Status: Acute Plan to address problem: Balanced diet, increase physical activity at discharge, outpatient pulmonary follow-up for sleep study (5) Seizure disorder Current Visit: Yes Status: Acute Plan to address problem: Seizure precautions, neurochecks, continue current therapy. (6) Diabetes Current Visit: Yes Status: Acute Plan to address problem: Consistent carbohydrate diet, hypoglycemia protocol, insulin protocol, History Interval history: 60 YO Male with DM, COPD, Nicotine Dependence, HTN, Seizure Disorder admitted to [facility] unit for psychiatric stabilization. Patient seen and evaluated in the recreation room. No reported nursing events. Patient denies pain. Hospitalist Physical - Constitutional Vitals: Temp Pulse Resp BP Pulse Ox 98.0 F 80 18 135/83 98 01/11/21 11:06 01/11/21 11:06 01/11/21 11:06 01/11/21 11:06 01/11/21 11:06 General appearance: Present: no acute distress - EENT Eyes: Present: PERRL, EOM intact ENT: hearing intact - Neck Neck: Present: supple - Respiratory Respiratory effort: normal Respiratory: bilateral: diminished - Cardiovascular Rhythm: regular Heart Sounds: Present: S1 & S2 - Extremities Extremities: no ischemia Peripheral Pulses: within normal limits - Abdominal General gastrointestinal: soft, non-tender, non-distended - Integumentary Integumentary: Present: clear, dry - Psychiatric Psychiatric: cooperative - Neurologic Neurologic: CNII-XII intact Results - Labs CBC & Chem 7: 01/09/21 09:14 01/09/21 09:14 Labs: Laboratory Last Values WBC 12.4 K/mm3 (4.5-11.0) H 01/09/21 09:14 RBC 4.77 M/mm3 (3.65-5.03) 01/09/21 09:14 Hgb 13.2 gm/dl (11.8-15.2) 01/09/21 09:14 Hct 40.9 % (35.5-45.6) 01/09/21 09:14 MCV 86 fl (84-94) 01/09/21 09:14 MCH 28 pg (28-32) 01/09/21 09:14 MCHC 32 % (32-34) 01/09/21 09:14 RDW 14.3 % (13.2-15.2) 01/09/21 09:14 Plt Count 283 K/mm3 (140-440) 01/09/21 09:14 Lymph % (Auto) 25.8 % (13.4-35.0) 01/09/21 09:14 [place] % (Auto) 9.0 % (0.0-7.3) H 01/09/21 09:14 Eos % (Auto) 2.1 % (0.0-4.3) 01/09/21 09:14 Baso % (Auto) 0.6 % (0.0-1.8) 01/09/21 09:14 Lymph # (Auto) 3.2 K/mm3 (1.2-5.4) 01/09/21 09:14 [place] # (Auto) 1.1 K/mm3 (0.0-0.8) H 01/09/21 09:14 Eos # (Auto) 0.3 K/mm3 (0.0-0.4) 01/09/21 09:14 Baso # (Auto) 0.1 K/mm3 (0.0-0.1) 01/09/21 09:14 Seg Neutrophils % 62.5 % (40.0-70.0) 01/09/21 09:14 Seg Neutrophils # 7.8 K/mm3 (1.8-7.7) H 01/09/21 09:14 Sodium 137 mmol/L (137-145) 01/09/21 09:14 Potassium 4.8 mmol/L (3.6-5.0) 01/09/21 09:14 Chloride 101.7 mmol/L (98-107) 01/09/21 09:14 Carbon Dioxide 21 mmol/L (22-30) L 01/09/21 09:14 Anion Gap 19 mmol/L 01/09/21 09:14 BUN 21 mg/dL (9-20) H 01/09/21 09:14 Creatinine 1.3 mg/dL (0.8-1.3) 01/09/21 09:14 Estimated GFR > 60 ml/min 01/09/21 09:14 BUN/Creatinine Ratio 16 % 01/09/21 09:14 Glucose 207 mg/dL (75-100) H 01/09/21 09:14 POC Glucose 183 mg/dL (70-105) H 01/11/21 16:33 Calcium 9.3 mg/dL (8.4-10.2) 01/09/21 09:14 Magnesium 2.10 mg/dL (1.7-2.3) 01/11/21 09:26 Total Bilirubin 0.50 mg/dL (0.1-1.2) 01/09/21 09:14 AST 16 units/L (5-40) 01/09/21 09:14 ALT 24 units/L (7-56) 01/09/21 09:14 Alkaline Phosphatase 149 units/L (35-129) H 01/09/21 09:14 Total Protein 6.8 g/dL (6.3-8.2) 01/09/21 09:14 Albumin 4.1 g/dL (3.9-5) 01/09/21 09:14 Albumin/Globulin Ratio 1.5 % 01/09/21 09:14 TSH 1.840 mlU/mL (0.270-4.200) 01/09/21 09:14 Hepatitis A IgM Ab Non-reactive (NonReactive) 01/09/21 09:14 Hep Bs Antigen Nonreactive (Negative) 01/09/21 09:14 Hep B Core IgM Ab Non-reactive (NonReactive) 01/09/21 09:14 Hepatitis C Antibody Non-reactive (NonReactive) 01/09/21 09:14 Nunes/IV: Voiding Method Toilet Active Medications - Current Medications Current Medications: Generic Name Dose Route Start Last Admin Trade Name Freq PRN Reason Stop Dose Admin Apixaban 5 mg 01/09/21 22:00 01/11/21 10:54 Apixaban 5 Mg Tab PO 5 mg Q12HR JAN Administration Insulin Glargine 22 units 01/09/21 22:00 01/10/21 22:13 Insulin Glargine 100 Units/Ml SUB-Q 22 units QHS JAN Administration Insulin Human Lispro 0 unit 01/09/21 16:30 01/11/21 16:55 Insulin Lispro 100 Unit/Ml SUB-Q Not Given ACHS [facility] Protocol Levetiracetam 1,000 mg 01/09/21 22:00 01/11/21 10:54 Levetiracetam 500 Mg Tab PO 1,000 mg BID JAN Administration Lisinopril 10 mg 01/09/21 14:00 01/11/21 11:00 Lisinopril 10 Mg Tab PO 10 mg DAILY [facility] Administration Magnesium Oxide 400 mg 01/09/21 14:00 01/11/21 18:22 Magnesium Oxide 400 Mg Tab PO Not Given TID [facility] Metoprolol Tartrate 50 mg 01/09/21 12:00 01/11/21 11:00 Metoprolol Tartrate 50 Mg Tab PO 50 mg BID [facility] Administration Miscellaneous Medication 2 puff 01/09/21 11:45 Tiotropium Br/Olodaterol Hcl [Stiolto Respimat Inhal [place]] NS DAILY [facility] Oxycodone HCl 5 mg 01/09/21 14:00 01/11/21 15:50 Oxycodone 5 Mg Tab PO 5 mg TID [facility] Administration Pravastatin Sodium 80 mg 01/09/21 22:00 01/10/21 21:32 Pravastatin 80 Mg Tab PO 80 mg QHS [facility] Administration Quetiapine Fumarate 400 mg 01/09/21 22:00 01/10/21 21:31 Quetiapine 200 Mg Tab PO 400 mg HS [facility] Administration Quetiapine Fumarate 25 mg 01/10/21 11:00 01/11/21 10:54 Quetiapine 25 Mg Tab PO 25 mg DAILY [facility] Administration Sertraline HCl 25 mg 01/10/21 11:00 01/11/21 10:54 Sertraline 25 Mg Tab PO 25 mg QDAY JAN Administration
[2021-01-11] MEDS: QUEtiapine 200 MG TAB PO SCH (21:24)
[2021-01-11] MEDS: INSULIN GLARGINE 100 UNITS/ML SUB-Q SCH (21:26)
[2021-01-11] MEDS: PRAVASTATIN 80 MG TAB PO SCH (21:28)
[2021-01-12] MEDS: INSULIN LISPRO 100 UNIT/ML SUB-Q SCH ×4 (08:23→22:22)
[2021-01-12] MEDS: oxyCODONE 5 MG TAB PO SCH ×3 (08:54→21:01)
[2021-01-12] MEDS: levETIRAcetam 500 MG TAB PO SCH ×2 (09:01→21:03)
[2021-01-12] MEDS: APIXABAN 5 MG TAB PO SCH ×2 (09:01→21:02)
[2021-01-12] MEDS: SERTRALINE 25 MG TAB PO SCH (09:01)
[2021-01-12] MEDS: QUEtiapine 25 MG TAB PO SCH (09:01)
[2021-01-12] MEDS: METOPROLOL TARTRATE 50 MG TAB PO SCH ×2 (09:02→21:04)
[2021-01-12] MEDS: LISINOPRIL 10 MG TAB PO SCH (09:05)
[2021-01-12] MEDS: MAGNESIUM OXIDE 400 MG TAB PO SCH ×3 (09:41→21:01)
--- NOTE | 2021-01-12 10:25 | Progress Note ---
Subjective Date of service: 01/12/21 Principal diagnosis: Schizophrenia Subjective Comment: The patient was seen today. He says he's feeling better. He says he's been sleeping well and his appetite is good. He says he believes the meds and rest have been working for him. The patient says he's not longer suicidal. He denies any hallucinations. Will monitor the patient overnight and discharge him tomorrow to a safe place. REVIEW OF SYSTEMS Constitutional: Negative for weight loss ENT: Negative for stridor Respiratory: Negative for cough or hemoptysis All other systems reviewed and are negative MENTAL STATUS EXAMINATION General Appearance and Behavior: Age appropriate, good hygiene, wearing appropriate clothes. Cooperation: cooperative Psychomotor Behavior: Psychomotor normal Mood: Depressed Affect and affective range: Incongruent with stated mood Thought Process: Goal directed Thought Content: None Speech: Normal volume, Regular rate and rhythm, Suicidal Ideation: Yes Homicidal Ideation: Denies Hallucinations: Auditory Delusions: None elicited Impulse Control: Unimpaired Insight and Judgment: Poor Memory: limited Attention: Distractible Orientation: alert and oriented Assessment and Plan (1) Schizophrenia Current Visit: Yes Status: Acute Treatment Plan Patient admitted for inpatient psychiatric evaluation, medication adjustment and close monitoring The patient's behavior, mood, sleep and appetite will be closely monitored. Patient enrolled in individual and group therapeutic sessions and encouraged to attend. Patient provided with a safe and structured environment. Patient's physical health needs will be addressed by the Hospitalist. Hospitalist Consulted Labs including CBC, CMP, Lipid profile and Hemoglobin A1C levels ordered for baseline reference Social Assessment will be completed and the Relationship Manager will work with patient and family to ensure a suitable and safe disposition Medication adjustment will be made as clinically indicated No changes made today Usual Wellness Mosque/Preservation: - Start Trazodone 50 mg po QHS & 50 mg po QHS PRN between 10 PM & 2 AM for insomnia - Start Melatonin 5 mg po QHS to promote circadian rhythm The patient agreed on the treatment plan, understood the risk, benefit, alternative treatment, potential consequence of no treatment, and gave informed consent. Estimated days: 5 Post hospital care: primary care provider, psychiatric provider Case staffed with Dr. Grewal Medications and Allergies Allergies Allergy/AdvReac Type Severity Reaction Status Date / Time acetaminophen Allergy Severe Swelling Verified 01/08/21 23:30 aspirin Allergy Severe Swelling Verified 01/08/21 23:32 Home Medications Medication Instructions Recorded Confirmed Last Taken Type Apixaban [Eliquis] 5 mg PO BID 01/09/21 01/09/21 Unknown History Insulin Detemir [Levemir Flextouch] 22 unit SQ 01/09/21 01/09/21 Unknown History Lispro Insulin [HumaLOG] See Protocol SQ [facility] 01/09/21 01/09/21 Unknown History Magnesium Oxide [Mag-Ox] 400 mg PO TID 01/09/21 01/09/21 Unknown History Metoprolol [Lopressor TAB] 50 mg PO BID 01/09/21 01/09/21 Unknown History Pravastatin [Pravachol] 80 mg PO QHS 01/09/21 01/09/21 Unknown History Quetiapine Fumarate [SEROquel] 400 mg PO HS 01/09/21 01/09/21 Unknown History Tiotropium Br/Olodaterol HCl 2 puff IH DAILY 01/09/21 01/09/21 Unknown History [Stiolto Respimat Inhal [place]] levETIRAcetam [Keppra TAB] 1,000 mg PO BID 01/09/21 01/09/21 Unknown History lisinopriL [Lisinopril] 10 mg PO DAILY 01/09/21 01/09/21 Unknown History oxyCODONE [roxiCODONE] 5 mg PO TID 01/09/21 01/09/21 Unknown History Active Meds: Active Medications Apixaban (Apixaban 5 Mg Tab) 5 mg PO Q12HR [facility] Last Admin: 01/12/21 09:01 Dose: 5 mg Documented by: Insulin Glargine (Insulin Glargine 100 Units/Ml) [facility] Admin: 01/11/21 21:26 Dose: 22 units Documented by: Insulin Human Lispro (Insulin Lispro 100 Unit/Ml) 0 unit SUB-Q [facility]; Protocol Last Admin: 01/12/21 08:23 Dose: Not Given Documented by: Levetiracetam (Levetiracetam 500 Mg Tab) 1,000 mg PO BID [facility] Last Admin: 01/12/21 09:01 Dose: 1,000 mg Documented by: Lisinopril (Lisinopril 10 Mg Tab) 10 mg PO DAILY [facility] Last Admin: 01/12/21 09:05 Dose: 10 mg Documented by: Magnesium Oxide (Magnesium Oxide 400 Mg Tab) 400 mg PO TID [facility] Last Admin: 01/12/21 09:41 Dose: 400 mg Documented by: Metoprolol Tartrate (Metoprolol Tartrate 50 Mg Tab) 50 mg PO BID [facility] Last Admin: 01/12/21 09:02 Dose: 50 mg Documented by: Miscellaneous Medication (Tiotropium Br/Olodaterol Hcl [Stiolto Respimat Inhal [place]]) 2 puff NS DAILY [facility] Oxycodone HCl (Oxycodone 5 Mg Tab) 5 mg PO TID [facility] Last Admin: 01/12/21 08:54 Dose: 5 mg Documented by: Pravastatin Sodium (Pravastatin 80 Mg Tab) 80 mg PO QHS [facility] Last Admin: 01/11/21 21:28 Dose: 80 mg Documented by: Quetiapine Fumarate (Quetiapine 200 Mg Tab) 400 mg PO HS [facility] Last Admin: 01/11/21 21:24 Dose: 400 mg Documented by: Quetiapine Fumarate (Quetiapine 25 Mg Tab) 25 mg PO DAILY [facility] Last Admin: 01/12/21 09:01 Dose: 25 mg Documented by: Sertraline HCl (Sertraline 25 Mg Tab) 25 mg PO QDAY [facility] Last Admin: 01/12/21 09:01 Dose: 25 mg Documented by: Results - Results Labs/Vitals: Laboratory Last Values WBC 12.4 K/mm3 (4.5-11.0) H 01/09/21 09:14 RBC 4.77 M/mm3 (3.65-5.03) 01/09/21 09:14 Hgb 13.2 gm/dl (11.8-15.2) 01/09/21 09:14 Hct 40.9 % (35.5-45.6) 01/09/21 09:14 MCV 86 fl (84-94) 01/09/21 09:14 MCH 28 pg (28-32) 01/09/21 09:14 MCHC 32 % (32-34) 01/09/21 09:14 RDW 14.3 % (13.2-15.2) 01/09/21 09:14 Plt Count 283 K/mm3 (140-440) 01/09/21 09:14 Lymph % (Auto) 25.8 % (13.4-35.0) 01/09/21 09:14 [place] % (Auto) 9.0 % (0.0-7.3) H 01/09/21 09:14 Eos % (Auto) 2.1 % (0.0-4.3) 01/09/21 09:14 Baso % (Auto) 0.6 % (0.0-1.8) 01/09/21 09:14 Lymph # (Auto) 3.2 K/mm3 (1.2-5.4) 01/09/21 09:14 [place] # (Auto) 1.1 K/mm3 (0.0-0.8) H 01/09/21 09:14 Eos # (Auto) 0.3 K/mm3 (0.0-0.4) 01/09/21 09:14 Baso # (Auto) 0.1 K/mm3 (0.0-0.1) 01/09/21 09:14 Seg Neutrophils % 62.5 % (40.0-70.0) 01/09/21 09:14 Seg Neutrophils # 7.8 K/mm3 (1.8-7.7) H 01/09/21 09:14 Sodium 137 mmol/L (137-145) 01/09/21 09:14 Potassium 4.8 mmol/L (3.6-5.0) 01/09/21 09:14 Chloride 101.7 mmol/L (98-107) 01/09/21 09:14 Carbon Dioxide 21 mmol/L (22-30) L 01/09/21 09:14 Anion Gap 19 mmol/L 01/09/21 09:14 BUN 21 mg/dL (9-20) H 01/09/21 09:14 Creatinine 1.3 mg/dL (0.8-1.3) 01/09/21 09:14 Estimated GFR > 60 ml/min 01/09/21 09:14 BUN/Creatinine Ratio 16 % 01/09/21 09:14 Glucose 207 mg/dL (75-100) H 01/09/21 09:14 POC Glucose 143 mg/dL (70-105) H 01/12/21 06:02 Calcium 9.3 mg/dL (8.4-10.2) 01/09/21 09:14 Magnesium 2.10 mg/dL (1.7-2.3) 01/11/21 09:26 Total Bilirubin 0.50 mg/dL (0.1-1.2) 01/09/21 09:14 AST 16 units/L (5-40) 01/09/21 09:14 ALT 24 units/L (7-56) 01/09/21 09:14 Alkaline Phosphatase 149 units/L (35-129) H 01/09/21 09:14 Total Protein 6.8 g/dL (6.3-8.2) 01/09/21 09:14 Albumin 4.1 g/dL (3.9-5) 01/09/21 09:14 Albumin/Globulin Ratio 1.5 % 01/09/21 09:14 TSH 1.840 mlU/mL (0.270-4.200) 01/09/21 09:14 Hepatitis A IgM Ab Non-reactive (NonReactive) 01/09/21 09:14 Hep Bs Antigen Nonreactive (Negative) 01/09/21 09:14 Hep B Core IgM Ab Non-reactive (NonReactive) 01/09/21 09:14 Hepatitis C Antibody Non-reactive (NonReactive) 01/09/21 09:14 Last Vital Signs Temp 98.9 F 01/11/21 22:00 Pulse 70 01/12/21 09:02 Resp 18 01/12/21 08:54 BP 113/70 01/12/21 09:02 Pulse Ox 99 01/12/21 08:29
[2021-01-12] MEDS: PRAVASTATIN 80 MG TAB PO SCH (21:04)
[2021-01-12] MEDS: QUEtiapine 200 MG TAB PO SCH (21:04)
[2021-01-12] MEDS: INSULIN GLARGINE 100 UNITS/ML SUB-Q SCH (22:21)
[2021-01-13] MEDS: INSULIN LISPRO 100 UNIT/ML SUB-Q SCH ×4 (07:44→22:36)
[2021-01-13] MEDS: MAGNESIUM OXIDE 400 MG TAB PO SCH ×3 (07:54→22:35)
[2021-01-13] MEDS: oxyCODONE 5 MG TAB PO SCH ×3 (07:54→22:24)
[2021-01-13] MEDS: APIXABAN 5 MG TAB PO SCH ×2 (09:22→22:35)
[2021-01-13] MEDS: levETIRAcetam 500 MG TAB PO SCH ×2 (09:22→22:25)
[2021-01-13] MEDS: SERTRALINE 25 MG TAB PO SCH (09:22)
[2021-01-13] MEDS: METOPROLOL TARTRATE 50 MG TAB PO SCH ×2 (09:22→22:25)
[2021-01-13] MEDS: QUEtiapine 25 MG TAB PO SCH (09:22)
[2021-01-13] MEDS: LISINOPRIL 10 MG TAB PO SCH (09:23)
--- NOTE | 2021-01-13 09:40 | Discharge Summary ---
Providers - Providers Date of Admission: 01/09/21 04:13 Date of discharge: 01/13/21 Attending physician: TAYO YUN MD 01/08/21 15:39 Consult to Physician [CONS] Routine Comment: Consulting Provider: DIONTE SIFUENTES Physician Instructions: Reason For Exam: Manage existing medical conditions Primary care physician: PEDIATRIC LPN Hospitalization Reason for admission: depression Admitting Diagnosis: F20.9 - SCHIZOPHRENIA, UNSPECIFIED Condition: Stable Hospital course: The patient was provided inpatient psychiatric treatment with safe and supportive care, medication adjustment, adverse effect monitoring, medical evaluations, medical treatments, assessment and psycho-education. The patient's mood, cognition, behavior, moral support are improved and stabilized. St the time of discharge, the patient had no endangering behavior and no debilitating adverse effects. The patient agreed on potential consequences of no treatment and gave informed consent. Disposition: HOME / SELF CARE / HOMELESS Time spent for discharge: 35 Allergies/Adverse Reactions: Allergies acetaminophen Allergy (Severe, Verified 01/08/21 23:30) Swelling aspirin Allergy (Severe, Verified 01/08/21 23:32) Swelling Vital Signs: Last Vital Signs Temp 98.6 F 01/13/21 07:31 Pulse 68 01/13/21 09:23 Resp 18 01/13/21 07:54 BP 117/70 01/13/21 09:23 Pulse Ox 96 01/13/21 07:31 Last Lab: Laboratory Last Values WBC 12.4 K/mm3 (4.5-11.0) H 01/09/21 09:14 RBC 4.77 M/mm3 (3.65-5.03) 01/09/21 09:14 Hgb 13.2 gm/dl (11.8-15.2) 01/09/21 09:14 Hct 40.9 % (35.5-45.6) 01/09/21 09:14 MCV 86 fl (84-94) 01/09/21 09:14 MCH 28 pg (28-32) 01/09/21 09:14 MCHC 32 % (32-34) 01/09/21 09:14 RDW 14.3 % (13.2-15.2) 01/09/21 09:14 Plt Count 283 K/mm3 (140-440) 01/09/21 09:14 Lymph % (Auto) 25.8 % (13.4-35.0) 01/09/21 09:14 [place] % (Auto) 9.0 % (0.0-7.3) H 01/09/21 09:14 Eos % (Auto) 2.1 % (0.0-4.3) 01/09/21 09:14 Baso % (Auto) 0.6 % (0.0-1.8) 01/09/21 09:14 Lymph # (Auto) 3.2 K/mm3 (1.2-5.4) 01/09/21 09:14 [place] # (Auto) 1.1 K/mm3 (0.0-0.8) H 01/09/21 09:14 Eos # (Auto) 0.3 K/mm3 (0.0-0.4) 01/09/21 09:14 Baso # (Auto) 0.1 K/mm3 (0.0-0.1) 01/09/21 09:14 Seg Neutrophils % 62.5 % (40.0-70.0) 01/09/21 09:14 Seg Neutrophils # 7.8 K/mm3 (1.8-7.7) H 01/09/21 09:14 Sodium 137 mmol/L (137-145) 01/09/21 09:14 Potassium 4.8 mmol/L (3.6-5.0) 01/09/21 09:14 Chloride 101.7 mmol/L (98-107) 01/09/21 09:14 Carbon Dioxide 21 mmol/L (22-30) L 01/09/21 09:14 Anion Gap 19 mmol/L 01/09/21 09:14 BUN 21 mg/dL (9-20) H 01/09/21 09:14 Creatinine 1.3 mg/dL (0.8-1.3) 01/09/21 09:14 Estimated GFR > 60 ml/min 01/09/21 09:14 BUN/Creatinine Ratio 16 % 01/09/21 09:14 Glucose 207 mg/dL (75-100) H 01/09/21 09:14 POC Glucose 132 mg/dL (70-105) H 01/13/21 07:20 Calcium 9.3 mg/dL (8.4-10.2) 01/09/21 09:14 Magnesium 2.10 mg/dL (1.7-2.3) 01/11/21 09:26 Total Bilirubin 0.50 mg/dL (0.1-1.2) 01/09/21 09:14 AST 16 units/L (5-40) 01/09/21 09:14 ALT 24 units/L (7-56) 01/09/21 09:14 Alkaline Phosphatase 149 units/L (35-129) H 01/09/21 09:14 Total Protein 6.8 g/dL (6.3-8.2) 01/09/21 09:14 Albumin 4.1 g/dL (3.9-5) 01/09/21 09:14 Albumin/Globulin Ratio 1.5 % 01/09/21 09:14 TSH 1.840 mlU/mL (0.270-4.200) 01/09/21 09:14 Hepatitis A IgM Ab Non-reactive (NonReactive) 01/09/21 09:14 Hep Bs Antigen Nonreactive (Negative) 01/09/21 09:14 Hep B Core IgM Ab Non-reactive (NonReactive) 01/09/21 09:14 Hepatitis C Antibody Non-reactive (NonReactive) 01/09/21 09:14 Core Measure Documentation - Palliative Care Palliative Care/ Comfort Measures: Not Applicable - Core Measures Any of the following diagnoses?: none Exam - Constitutional Vitals: Temp Pulse Resp BP Pulse Ox 98.6 F 68 18 117/70 96 01/13/21 07:31 01/13/21 09:23 01/13/21 07:54 01/13/21 09:23 01/13/21 07:31 General appearance: Present: no acute distress - EENT Eyes: Present: PERRL, EOM intact ENT: hearing intact, clear oral mucosa - Neck Neck: Present: supple, normal ROM - Respiratory Respiratory effort: normal Plan Activity: advance as tolerated Weight Bearing Status: Weight Bear as Tolerated Care Plan Goals: Maintain good and stable mental health Plan of Treatment: The patient should be compliant with medications, not to use drugs, and not to drink alcohol. The patient understands that if suicidal ideas, homicidal ideas or any endangering feeling arise, the patient should seek assistance including, but not limited to crisis hotline, and emergency room. Assessment: Schizophrenia Follow up with: PRIMARY CARE, [Primary Care Provider] - 7 Days Prescriptions: QUEtiapine [SEROquel] 25 mg PO DAILY #30 tablet Quetiapine Fumarate [SEROquel] 400 mg PO HS #30 Sertraline [Zoloft] 25 mg PO QDAY #30 tablet
--- NOTE | 2021-01-13 17:54 | Progress Note ---
Assessment and Plan - Patient Problems (1) COPD (chronic obstructive pulmonary disease) Current Visit: Yes Status: Acute Plan to address problem: Supplemental oxygen, pulse oximetry, continue current therapy. Outpatient pulmonary follow-up. (2) Nicotine dependence Current Visit: Yes Status: Acute Qualifiers: Nicotine product type: cigarettes Substance use status: in withdrawal Qualified Code(s): F17.213 - Nicotine dependence, cigarettes, with withdrawal Plan to address problem: Smoking cessation counseling, behavior change counseling, +15 minutes. (3) Hypertension Current Visit: Yes Status: Acute Qualifiers: Hypertension type: primary hypertension Qualified Code(s): I10 - Essential (primary) hypertension Plan to address problem: Monitor blood pressure every shift, continue medical management. (4) Obesity Current Visit: Yes Status: Acute Plan to address problem: Balanced diet, increase physical activity at discharge, outpatient pulmonary follow-up for sleep study (5) Seizure disorder Current Visit: Yes Status: Acute Plan to address problem: Seizure precautions, neurochecks, continue current therapy. (6) Diabetes Current Visit: Yes Status: Acute Plan to address problem: Consistent carbohydrate diet, hypoglycemia protocol, insulin protocol, History Interval history: 60 YO Male with DM, COPD, Nicotine Dependence, HTN, Seizure Disorder admitted to [facility] for psychiatric stabilization. Patient seen and evaluated in the recreation room. No reported nursing events. Patient denies pain. Hospitalist Physical - Constitutional Vitals: Temp Pulse Resp BP Pulse Ox 98.6 F 68 18 117/70 96 01/13/21 07:31 01/13/21 09:23 01/13/21 07:54 01/13/21 09:23 01/13/21 07:31 General appearance: Present: no acute distress - EENT Eyes: Present: PERRL ENT: hearing intact - Neck Neck: Present: supple - Respiratory Respiratory effort: normal Respiratory: bilateral: diminished - Cardiovascular Rhythm: regular Heart Sounds: Present: S1 & S2 - Extremities Extremities: no ischemia Peripheral Pulses: within normal limits - Abdominal General gastrointestinal: soft, non-tender, non-distended - Integumentary Integumentary: Present: clear, dry - Psychiatric Psychiatric: cooperative - Neurologic Neurologic: CNII-XII intact Results - Labs CBC & Chem 7: 01/09/21 09:14 01/09/21 09:14 Labs: Laboratory Last Values WBC 12.4 K/mm3 (4.5-11.0) H 01/09/21 09:14 RBC 4.77 M/mm3 (3.65-5.03) 01/09/21 09:14 Hgb 13.2 gm/dl (11.8-15.2) 01/09/21 09:14 Hct 40.9 % (35.5-45.6) 01/09/21 09:14 MCV 86 fl (84-94) 01/09/21 09:14 MCH 28 pg (28-32) 01/09/21 09:14 MCHC 32 % (32-34) 01/09/21 09:14 RDW 14.3 % (13.2-15.2) 01/09/21 09:14 Plt Count 283 K/mm3 (140-440) 01/09/21 09:14 Lymph % (Auto) 25.8 % (13.4-35.0) 01/09/21 09:14 [place] % (Auto) 9.0 % (0.0-7.3) H 01/09/21 09:14 Eos % (Auto) 2.1 % (0.0-4.3) 01/09/21 09:14 Baso % (Auto) 0.6 % (0.0-1.8) 01/09/21 09:14 Lymph # (Auto) 3.2 K/mm3 (1.2-5.4) 01/09/21 09:14 [place] # (Auto) 1.1 K/mm3 (0.0-0.8) H 01/09/21 09:14 Eos # (Auto) 0.3 K/mm3 (0.0-0.4) 01/09/21 09:14 Baso # (Auto) 0.1 K/mm3 (0.0-0.1) 01/09/21 09:14 Seg Neutrophils % 62.5 % (40.0-70.0) 01/09/21 09:14 Seg Neutrophils # 7.8 K/mm3 (1.8-7.7) H 01/09/21 09:14 Sodium 137 mmol/L (137-145) 01/09/21 09:14 Potassium 4.8 mmol/L (3.6-5.0) 01/09/21 09:14 Chloride 101.7 mmol/L (98-107) 01/09/21 09:14 Carbon Dioxide 21 mmol/L (22-30) L 01/09/21 09:14 Anion Gap 19 mmol/L 01/09/21 09:14 BUN 21 mg/dL (9-20) H 01/09/21 09:14 Creatinine 1.3 mg/dL (0.8-1.3) 01/09/21 09:14 Estimated GFR > 60 ml/min 01/09/21 09:14 BUN/Creatinine Ratio 16 % 01/09/21 09:14 Glucose 207 mg/dL (75-100) H 01/09/21 09:14 POC Glucose 154 mg/dL (70-105) H 01/13/21 16:18 Calcium 9.3 mg/dL (8.4-10.2) 01/09/21 09:14 Magnesium 2.10 mg/dL (1.7-2.3) 01/11/21 09:26 Total Bilirubin 0.50 mg/dL (0.1-1.2) 01/09/21 09:14 AST 16 units/L (5-40) 01/09/21 09:14 ALT 24 units/L (7-56) 01/09/21 09:14 Alkaline Phosphatase 149 units/L (35-129) H 01/09/21 09:14 Total Protein 6.8 g/dL (6.3-8.2) 01/09/21 09:14 Albumin 4.1 g/dL (3.9-5) 01/09/21 09:14 Albumin/Globulin Ratio 1.5 % 01/09/21 09:14 TSH 1.840 mlU/mL (0.270-4.200) 01/09/21 09:14 Hepatitis A IgM Ab Non-reactive (NonReactive) 01/09/21 09:14 Hep Bs Antigen Nonreactive (Negative) 01/09/21 09:14 Hep B Core IgM Ab Non-reactive (NonReactive) 01/09/21 09:14 Hepatitis C Antibody Non-reactive (NonReactive) 01/09/21 09:14 Nunes/IV: Voiding Method Toilet Active Medications - Current Medications Current Medications: Generic Name Dose Route Start Last Admin Trade Name Freq PRN Reason Stop Dose Admin Apixaban 5 mg 01/09/21 22:00 01/13/21 09:22 Apixaban 5 Mg Tab PO 5 mg Q12HR JAN Administration Insulin Glargine 22 units 01/09/21 22:00 01/12/21 22:21 Insulin Glargine 100 Units/Ml SUB-Q 22 units QHS JAN Administration Insulin Human Lispro 0 unit 01/09/21 16:30 01/13/21 11:43 Insulin Lispro 100 Unit/Ml SUB-Q Not Given ACHS [facility] Protocol Levetiracetam 1,000 mg 01/09/21 22:00 01/13/21 09:22 Levetiracetam 500 Mg Tab PO 1,000 mg BID JAN Administration Lisinopril 10 mg 01/09/21 14:00 01/13/21 09:23 Lisinopril 10 Mg Tab PO 10 mg DAILY [facility] Administration Magnesium Oxide 400 mg 01/09/21 14:00 01/13/21 14:54 Magnesium Oxide 400 Mg Tab PO 400 mg TID [facility] Administration Metoprolol Tartrate 50 mg 01/09/21 12:00 01/13/21 09:22 Metoprolol Tartrate 50 Mg Tab PO 50 mg BID [facility] Administration Miscellaneous Medication 2 puff 01/09/21 11:45 Tiotropium Br/Olodaterol Hcl [Stiolto Respimat Inhal [place]] NS DAILY [facility] Oxycodone HCl 5 mg 01/09/21 14:00 01/13/21 14:54 Oxycodone 5 Mg Tab PO 5 mg TID [facility] Administration Pravastatin Sodium 80 mg 01/09/21 22:00 01/12/21 21:04 Pravastatin 80 Mg Tab PO 80 mg QHS [facility] Administration Quetiapine Fumarate 400 mg 01/09/21 22:00 01/12/21 21:04 Quetiapine 200 Mg Tab PO 400 mg HS JAN Administration Quetiapine Fumarate 25 mg 01/10/21 11:00 01/13/21 09:22 Quetiapine 25 Mg Tab PO 25 mg DAILY [facility] Administration Sertraline HCl 25 mg 01/10/21 11:00 01/13/21 09:22 Sertraline 25 Mg Tab PO 25 mg QDAY JAN Administration
--- NOTE | 2021-01-13 17:55 | Progress Note ---
Assessment and Plan - Patient Problems (1) COPD (chronic obstructive pulmonary disease) Current Visit: Yes Status: Acute Plan to address problem: Supplemental oxygen, pulse oximetry, continue current therapy. Outpatient pulmonary follow-up. (2) Nicotine dependence Current Visit: Yes Status: Acute Qualifiers: Nicotine product type: cigarettes Substance use status: in withdrawal Qualified Code(s): F17.213 - Nicotine dependence, cigarettes, with withdrawal Plan to address problem: Smoking cessation counseling, behavior change counseling, +15 minutes. (3) Hypertension Current Visit: Yes Status: Acute Qualifiers: Hypertension type: primary hypertension Qualified Code(s): I10 - Essential (primary) hypertension Plan to address problem: Monitor blood pressure every shift, continue medical management. (4) Obesity Current Visit: Yes Status: Acute Plan to address problem: Balanced diet, increase physical activity at discharge, outpatient pulmonary follow-up for sleep study (5) Seizure disorder Current Visit: Yes Status: Acute Plan to address problem: Seizure precautions, neurochecks, continue current therapy. (6) Diabetes Current Visit: Yes Status: Acute Plan to address problem: Consistent carbohydrate diet, hypoglycemia protocol, insulin protocol, History Interval history: 60 YO Male with DM, COPD, Nicotine Dependence, HTN, Seizure Disorder admitted to [facility] for psychiatric stabilization. Patient seen and evaluated in the recreation room. No reported nursing events. Patient denies pain. Hospitalist Physical - Constitutional Vitals: Temp Pulse Resp BP Pulse Ox 98.6 F 68 18 117/70 96 01/13/21 07:31 01/13/21 09:23 01/13/21 07:54 01/13/21 09:23 01/13/21 07:31 General appearance: Present: no acute distress - EENT Eyes: Present: PERRL, EOM intact ENT: hearing intact - Neck Neck: Present: supple - Respiratory Respiratory effort: normal Respiratory: bilateral: diminished - Cardiovascular Rhythm: regular Heart Sounds: Present: S1 & S2 - Extremities Extremities: no ischemia Peripheral Pulses: within normal limits - Abdominal General gastrointestinal: soft, non-tender, non-distended - Integumentary Integumentary: Present: clear, dry - Psychiatric Psychiatric: appropriate mood/affect, cooperative - Neurologic Neurologic: CNII-XII intact Results - Labs CBC & Chem 7: 01/09/21 09:14 01/09/21 09:14 Labs: Laboratory Last Values WBC 12.4 K/mm3 (4.5-11.0) H 01/09/21 09:14 RBC 4.77 M/mm3 (3.65-5.03) 01/09/21 09:14 Hgb 13.2 gm/dl (11.8-15.2) 01/09/21 09:14 Hct 40.9 % (35.5-45.6) 01/09/21 09:14 MCV 86 fl (84-94) 01/09/21 09:14 MCH 28 pg (28-32) 01/09/21 09:14 MCHC 32 % (32-34) 01/09/21 09:14 RDW 14.3 % (13.2-15.2) 01/09/21 09:14 Plt Count 283 K/mm3 (140-440) 01/09/21 09:14 Lymph % (Auto) 25.8 % (13.4-35.0) 01/09/21 09:14 Colbert % (Auto) 9.0 % (0.0-7.3) H 01/09/21 09:14 Eos % (Auto) 2.1 % (0.0-4.3) 01/09/21 09:14 Baso % (Auto) 0.6 % (0.0-1.8) 01/09/21 09:14 Lymph # (Auto) 3.2 K/mm3 (1.2-5.4) 01/09/21 09:14 Colbert # (Auto) 1.1 K/mm3 (0.0-0.8) H 01/09/21 09:14 Eos # (Auto) 0.3 K/mm3 (0.0-0.4) 01/09/21 09:14 Baso # (Auto) 0.1 K/mm3 (0.0-0.1) 01/09/21 09:14 Seg Neutrophils % 62.5 % (40.0-70.0) 01/09/21 09:14 Seg Neutrophils # 7.8 K/mm3 (1.8-7.7) H 01/09/21 09:14 Sodium 137 mmol/L (137-145) 01/09/21 09:14 Potassium 4.8 mmol/L (3.6-5.0) 01/09/21 09:14 Chloride 101.7 mmol/L (98-107) 01/09/21 09:14 Carbon Dioxide 21 mmol/L (22-30) L 01/09/21 09:14 Anion Gap 19 mmol/L 01/09/21 09:14 BUN 21 mg/dL (9-20) H 01/09/21 09:14 Creatinine 1.3 mg/dL (0.8-1.3) 01/09/21 09:14 Estimated GFR > 60 ml/min 01/09/21 09:14 BUN/Creatinine Ratio 16 % 01/09/21 09:14 Glucose 207 mg/dL (75-100) H 01/09/21 09:14 POC Glucose 154 mg/dL (70-105) H 01/13/21 16:18 Calcium 9.3 mg/dL (8.4-10.2) 01/09/21 09:14 Magnesium 2.10 mg/dL (1.7-2.3) 01/11/21 09:26 Total Bilirubin 0.50 mg/dL (0.1-1.2) 01/09/21 09:14 AST 16 units/L (5-40) 01/09/21 09:14 ALT 24 units/L (7-56) 01/09/21 09:14 Alkaline Phosphatase 149 units/L (35-129) H 01/09/21 09:14 Total Protein 6.8 g/dL (6.3-8.2) 01/09/21 09:14 Albumin 4.1 g/dL (3.9-5) 01/09/21 09:14 Albumin/Globulin Ratio 1.5 % 01/09/21 09:14 TSH 1.840 mlU/mL (0.270-4.200) 01/09/21 09:14 Hepatitis A IgM Ab Non-reactive (NonReactive) 01/09/21 09:14 Hep Bs Antigen Nonreactive (Negative) 01/09/21 09:14 Hep B Core IgM Ab Non-reactive (NonReactive) 01/09/21 09:14 Hepatitis C Antibody Non-reactive (NonReactive) 01/09/21 09:14 Nunes/IV: Voiding Method Toilet Active Medications - Current Medications Current Medications: Generic Name Dose Route Start Last Admin Trade Name Freq PRN Reason Stop Dose Admin Apixaban 5 mg 01/09/21 22:00 01/13/21 09:22 Apixaban 5 Mg Tab PO 5 mg Q12HR JAN Administration Insulin Glargine 22 units 01/09/21 22:00 01/12/21 22:21 Insulin Glargine 100 Units/Ml SUB-Q 22 units QHS JAN Administration Insulin Human Lispro 0 unit 01/09/21 16:30 01/13/21 17:54 Insulin Lispro 100 Unit/Ml SUB-Q Not Given ACHS [facility] Protocol Levetiracetam 1,000 mg 01/09/21 22:00 01/13/21 09:22 Levetiracetam 500 Mg Tab PO 1,000 mg BID JAN Administration Lisinopril 10 mg 01/09/21 14:00 01/13/21 09:23 Lisinopril 10 Mg Tab PO 10 mg DAILY [facility] Administration Magnesium Oxide 400 mg 01/09/21 14:00 01/13/21 14:54 Magnesium Oxide 400 Mg Tab PO 400 mg TID [facility] Administration Metoprolol Tartrate 50 mg 01/09/21 12:00 01/13/21 09:22 Metoprolol Tartrate 50 Mg Tab PO 50 mg BID [facility] Administration Miscellaneous Medication 2 puff 01/09/21 11:45 Tiotropium Br/Olodaterol Hcl [Stiolto Respimat Inhal [place]] NS DAILY [facility] Oxycodone HCl 5 mg 01/09/21 14:00 01/13/21 14:54 Oxycodone 5 Mg Tab PO 5 mg TID [facility] Administration Pravastatin Sodium 80 mg 01/09/21 22:00 01/12/21 21:04 Pravastatin 80 Mg Tab PO 80 mg QHS [facility] Administration Quetiapine Fumarate 400 mg 01/09/21 22:00 01/12/21 21:04 Quetiapine 200 Mg Tab PO 400 mg HS [facility] Administration Quetiapine Fumarate 25 mg 01/10/21 11:00 01/13/21 09:22 Quetiapine 25 Mg Tab PO 25 mg DAILY [facility] Administration Sertraline HCl 25 mg 01/10/21 11:00 01/13/21 09:22 Sertraline 25 Mg Tab PO 25 mg QDAY JAN Administration
[2021-01-13 20:42] VITALS: BP 149/84
[2021-01-13] MEDS: PRAVASTATIN 80 MG TAB PO SCH (22:24)
[2021-01-13] MEDS: QUEtiapine 200 MG TAB PO SCH (22:26)
[2021-01-13] MEDS: INSULIN GLARGINE 100 UNITS/ML SUB-Q SCH (22:36)
== END 2021-01-13 21:05 | DRG 885 ==
LOC: 3A 15:20 → UNDOADMIN 15:20 → 5A 01-09 04:13
PROVIDERS: ADMIT Psychiatry & Neurology Psychiatry; ATTEND Psychiatry & Neurology Psychiatry
DX: F20.9 Schizophrenia, unspecified (principal); E66.9 Obesity, unspecified; Z68.33 Body mass index [BMI] 33.0-33.9, adult; J96.10 Chronic respiratory failure, unspecified whether with hypoxia or hypercapnia; J44.9 Chronic obstructive pulmonary disease, unspecified; E11.9 Type 2 diabetes mellitus without complications; G40.909 Epilepsy, unspecified, not intractable, without status epilepticus; I10 Essential (primary) hypertension; Z20.822 Contact with and (suspected) exposure to COVID-19; Z87.891 Personal history of nicotine dependence
CPT/HCPCS: 36415; 80053; 80074; 82962; 83735; 84443; 85025; G0378; J1815